=== PATIENT | female | born 1955 | race Native Hawaiian/Other Pacific Islander ===

== ENCOUNTER 2019-01-17 14:03 | Outpatient (CLI) | payer BC | END 2019-01-17 19:21 | disposition home or self-care (01) | LOC: RAD 14:03 | DX: M89.9 Disorder of bone, unspecified (principal) ==

== ENCOUNTER 2019-03-18 09:19 | Outpatient (CLI) | payer OTHER, MEDICARE | END 2019-03-18 23:44 | disposition home or self-care (01) | LOC: MAMMO 09:19 | DX: Z12.31 Encounter for screening mammogram for malignant neoplasm of breast (principal); N64.59 Other signs and symptoms in breast ==

== ENCOUNTER 2019-08-18 06:32 | Outpatient (CLI) | payer OTHER, MEDICARE | END 2019-08-18 19:25 | disposition home or self-care (01) | LOC: LAB 06:32 | DX: N39.0 Urinary tract infection, site not specified (principal); R30.0 Dysuria | CPT/HCPCS: 87077; 87086; 87088; 87186 ==

== ENCOUNTER 2020-05-03 08:46 | Outpatient (CLI) | payer OTHER, MEDICARE | END 2020-05-03 21:47 | disposition home or self-care (01) | LOC: MAMMO 08:46 | DX: Z12.31 Encounter for screening mammogram for malignant neoplasm of breast (principal) ==

== ENCOUNTER 2021-05-07 10:58 | Outpatient (CLI) | payer OTHER, MEDICARE | END 2021-05-07 20:35 | disposition home or self-care (01) | LOC: MAMMO 10:58 | PROVIDERS: ATTEND Specialist | DX: Z12.31 Encounter for screening mammogram for malignant neoplasm of breast (principal) ==

== ENCOUNTER 2022-02-20 10:41 | Outpatient (CLI) | payer OTHER, MEDICARE | END 2022-02-20 19:54 | disposition home or self-care (01) | LOC: MRI 10:41 | PROVIDERS: ATTEND Internal Medicine | DX: M51.16 Intervertebral disc disorders with radiculopathy, lumbar region (principal) ==

== ENCOUNTER 2022-05-09 09:00 | Outpatient (CLI) | payer OTHER, MEDICARE | END 2022-05-09 19:05 | disposition home or self-care (01) | LOC: MAMMO 09:00 | PROVIDERS: ATTEND Specialist | DX: Z12.31 Encounter for screening mammogram for malignant neoplasm of breast (principal) ==

== ENCOUNTER 2023-05-13 08:26 | Outpatient (CLI) | payer OTHER, MEDICARE | END 2023-05-13 19:14 | disposition home or self-care (01) | LOC: MAMMO 08:26 | PROVIDERS: ATTEND Specialist | DX: Z12.31 Encounter for screening mammogram for malignant neoplasm of breast (principal) ==

== ENCOUNTER 2023-05-20 08:25 | Outpatient (CLI) | payer OTHER, MEDICARE | END 2023-05-20 19:47 | disposition home or self-care (01) | LOC: MAMMO 08:25 | PROVIDERS: ATTEND Specialist | DX: R92.8 Other abnormal and inconclusive findings on diagnostic imaging of breast (principal) ==